=== PATIENT | male | born 1995 | race Caucasian/White ===

== ENCOUNTER 2017-06-09 23:58 | Outpatient (CLI) | END 2017-06-09 23:59 | disposition short-term general hospital (02) | LOC: AMBL 23:58 | PROVIDERS: ATTEND Emergency Medicine | DX: R41.0 Disorientation, unspecified (principal); F22 Delusional disorders ==

== ENCOUNTER 2017-10-10 14:20 | Outpatient (CLI) | END 2017-10-10 14:21 | disposition left against medical advice (07) | LOC: AMBL 14:20 | PROVIDERS: ATTEND Family Medicine | DX: R07.81 Pleurodynia (principal); Z04.1 Encounter for examination and observation following transport accident ==